=== PATIENT | female | born 1995 | race Caucasian/White ===

== ENCOUNTER 2018-03-14 11:50 | Outpatient (REF) | payer MEDICAID, SELFPAY ==
[2018-03-15 15:00] LABS: Chlamydia Result Negative; GC Result Negative; Specimen Description URINE
== END 2018-03-14 11:51 ==
LOC: LBN 11:50
PROVIDERS: Visit Provider Midwife
DX: O26.892 Other specified pregnancy related conditions, second trimester (principal); Z34.02 Encounter for supervision of normal first pregnancy, second trimester; N89.8 Other specified noninflammatory disorders of vagina; Z11.3 Encounter for screening for infections with a predominantly sexual mode of transmission
CPT/HCPCS: 87491; 87591; 87480; 87510; 87660

== ENCOUNTER 2018-04-16 16:18 | Outpatient (REF) | payer MEDICAID, SELFPAY ==
--- NOTE | 2018-04-16 10:35 | PAPFT_PTH ---
PATIENT: NAZANIN MORENO LOC: [facility] U#:[id number] AGE/SX: 22/F ROOM: RE04/16/[address]: Wesley Lora RN : 1995 BED: DIS: 04/16/2018 SPEC #: [id number] RECD: 04/16/18 17:57 STATUS: KAIN REKaryn #: [id number] GILBERTO: 04/16/18 10:[address]: Wesley Lora DEPT: [facility] Cytology RECD BY: Anna Brandt ENTERED: 04/16/18 17:58 SP TYPE: PAPFT BRENDEN DR: None Tissues: 1 - CX/ENDOCX FOR PAP SMEARS Procedures: PAP THIN PREP/UVM Screening Comments: [id number]
== END 2018-04-16 16:38 ==
LOC: LBN 16:18
PROVIDERS: Visit Provider Advanced Practice Midwife
DX: Z12.4 Encounter for screening for malignant neoplasm of cervix (principal)
CPT/HCPCS: 88142

== ENCOUNTER 2018-04-26 14:20 | Emergency (ER) | payer MEDICAID, SELFPAY ==
[2018-04-26 14:24] VITALS: BP 138/75; PULSE 108; RESP 18; TEMP 36.8; O2SAT 98
== END 2018-04-26 14:41 | disposition left before discharge ==
PROVIDERS: Emergency Provider Physician Assistant; PCP Nurse Practitioner Family
DX: Z53.21 Procedure and treatment not carried out due to patient leaving prior to being seen by health care provider (principal)

== ENCOUNTER 2018-04-30 07:17 | Outpatient (CLI) | payer MEDICAID, SELFPAY ==
[2018-04-30 07:46] LABS: Glucose,1 Hr (Glucola) 210 mg/dL (80-140)
[2018-04-30 07:57] LABS: HCT 32.6 % (36.0-46.0); HGB 10.9 g/dL (12.0-15.5); Mean Corp. HGB Concentration 33.4 g/dL (32.0-36.0); Mean Corpuscular Hemoglobin 31.4 pg (27.0-33.0); Mean Corpuscular Volume 93.9 fL (80-95); Mean Platelet Volume 10.6 fL (8.0-11.0); Platelet Count 236 x1000/uL (130-400); RBC 3.47 m/cumm (4.00-5.20); RBC Distribution Width 12.9 % (11.7-14.6); White Blood Cell Count 20.43 k/cumm (4.4-10.8)
[2018-04-30 08:01] LABS: TSH (W/Ref FT4) 2.13 uIU/mL (0.358-3.74)
[2018-05-03 23:19] LABS: Result Summary NEGATIVE; Specimen WB Whole Blood
== END 2018-04-30 07:37 ==
PROVIDERS: Advanced Practice Midwife; PCP Nurse Practitioner Family; Visit Provider Advanced Practice Midwife
DX: Z34.92 Encounter for supervision of normal pregnancy, unspecified, second trimester (principal); E03.9 Hypothyroidism, unspecified; Z13.228 Encounter for screening for other metabolic disorders; Z36.89 Encounter for other specified antenatal screening
CPT/HCPCS: 36415; 82950; 85027; 81220; 82947; 84443

== ENCOUNTER 2018-05-02 10:57 | Outpatient (REF) | payer MEDICAID, SELFPAY ==
[2018-05-02 13:51] LABS: TSH (W/Ref FT4) 2.24 uIU/mL (0.358-3.74)
== END 2018-05-02 11:17 ==
LOC: NCHCN 10:57
PROVIDERS: Visit Provider Family Medicine
DX: O99.283 Endocrine, nutritional and metabolic diseases complicating pregnancy, third trimester (principal); Z3A.30 30 weeks gestation of pregnancy
CPT/HCPCS: 84443

== ENCOUNTER 2018-05-10 01:04 | Outpatient (CLI) | payer MEDICAID, SELFPAY ==
--- NOTE | 2018-05-10 10:03 | DI.US_ITS ---
SYMPTOMS/DIAGNOSIS: , Z34.90, H/O RH OB ULTRASOUND: Many abnormalities cannot be diagnosed. A normal exam does not exclude a congenital anomaly. Radiology No. [id number] LMP: Exam Date: 05/10/18 [facility] wks days on EDC ([facility]) 07/16/18 Confirmed: HISTORY: ---- PREDICTED GESTATIONAL AGE NUMBER 30+3 weeks with a range of 29+3 weeks to 31+3 weeks. 1 Determined by___1STUS___LMP___HISTORY__X__ PLACENTA PRESENTATION Grade II Cephalic_X__ Anterior___Posterior___ Breech____ Right Left__X Transverse(head right___ Fundal_X__Low-lying___Previa___ Transverse(head left___ Varying BIOMETRY AMNIOTIC FLUID BPD: 75 mm 29+6 weeks Normal HC: 270 mm 29+3 weeks AC: 281 mm 32+1 weeks FL: 56 mm 29+4 weeks AMNIOTIC FLUID INDEX >26 WK CRL: mm weeks Cisterna Magna: mm CI: 0.87 RUQ: 4.24 LUQ: 5.36 Cerebellum: cm EFW: 1664 grams Percentile: 55th RLQ: 2.91 LLQ: 4.42 Total: 16.9 cm Composite AGE= 30+2 wks EDC by US: 07/17/18 BIOPHYSICAL PROFILE ANATOMY IDENTIFIED SCORE 0/2 Heart: 4-Chamber___Rate:BPM 147 LVOT: RVOT: Amniotic Fluid(>2cms)____ Stomach:__X Kidneys: Respirations (>30 secs) Bladder:___X Post. Fossa: Body Flex/Extension 3 vessel cord: Ventricles: cord insertion: Lips:____ Extremity Flex/Extension spinal morphology: Nose: Total Score= Palate: NS=not seen COMMENTS: Comparison is made with January,. The fetus is in cephalic position. Placenta is left sided. There is no evidence of previa. The biometric measurements correspond to 30 weeks 2 days. Estimated weight is 1664 g. The amniotic fluid index is 16.9. IMPRESSION: size and weight are within the normal range.
== END 2018-05-10 01:24 ==
PROVIDERS: PCP Nurse Practitioner Family; Visit Provider Advanced Practice Midwife
DX: Z34.93 Encounter for supervision of normal pregnancy, unspecified, third trimester (principal)
CPT/HCPCS: 76816

== ENCOUNTER 2018-05-27 12:35 | Outpatient (CLI) | payer MEDICAID, SELFPAY ==
[2018-05-27 15:37] LABS: Bilirubin Negative (Negative); Blood Negative (Negative); Clarity Clear; Glucose Negative (Negative); Ketones Negative (Negative); Leukocyte Esterase Negative (Negative); Nitrite Negative (Negative); Urobilinogen 0.2 EU/dL (Up TO 0.2)
== END 2018-05-27 12:55 ==
PROVIDERS: Visit Provider Advanced Practice Midwife
DX: O36.8130 Decreased fetal movements, third trimester, not applicable or unspecified (principal); Z3A.33 33 weeks gestation of pregnancy
CPT/HCPCS: 59025; 81003

== ENCOUNTER 2018-05-28 07:23 | Outpatient (CLI) | payer MEDICAID, SELFPAY ==
[2018-05-28 07:56] LABS: Glucose,1 Hr (Glucola) 158 mg/dL (80-140)
== END 2018-05-28 07:43 ==
PROVIDERS: PCP Nurse Practitioner Family; Visit Provider Advanced Practice Midwife
DX: Z34.93 Encounter for supervision of normal pregnancy, unspecified, third trimester (principal)
CPT/HCPCS: 36415; 82950

== ENCOUNTER 2018-06-07 01:10 | Outpatient (CLI) | payer MEDICAID, SELFPAY ==
[2018-06-07 08:54] LABS: Glucose 1 Hour 185 mg/dL
[2018-06-07 10:55] LABS: Glucose 3 Hour 84 mg/dL
== END 2018-06-07 01:30 ==
PROVIDERS: PCP Nurse Practitioner Family; Visit Provider Advanced Practice Midwife
DX: Z34.93 Encounter for supervision of normal pregnancy, unspecified, third trimester (principal); R73.09 Other abnormal glucose
CPT/HCPCS: 36410; 82951

== ENCOUNTER 2018-06-11 00:19 | Outpatient (CLI) | payer MEDICAID, SELFPAY ==
--- NOTE | 2018-06-11 10:02 | DI.US_ITS ---
SYMPTOM/DIAGNOSIS: H/O RENAL DISEASE Z87.448 OBSTETRICAL ULTRASOUND: There is a single living intrauterine gestation, estimated sonographic age is 34 weeks 6 days The fetus is in the cephalic presentation. heart rate is 153 beats/minute. A anatomic evaluation was not performed during this examination. Estimated weight is 2462 grams which is at 34th percentile The placenta is anterior without evidence of previa The amniotic fluid index is 17.9 cm, visually the amniotic fluid appears within normal limits. IMPRESSION: Single living intrauterine gestation. Estimated sonographic age is 34 weeks 6 days. Many abnormalities cannot be diagnosed. A normal exam does not exclude a congenital anomaly. Radiology No. [id number] LMP: Exam Date: [facility] wk on [facility] ([facility]) 07/16/18 Confirmed: HISTORY: GROWTH/JENNIFER ---- PREDICTED GESTATIONAL AGE NUMBER 35 - weeks with a range of 34 week to 36 weeks. 1 Determined by___1STUS___LMP___HISTORY Info. pertaining to fetus # PLACENTA PRESENTATION Grade II Cephalic__XX_ Anterior_XX__Posterior___ Breech____ Right Left__XX Transverse(head right___ Fundal___Low-lying___Previa___ Transverse(head left___ Varying BIOMETRY AMNIOTIC FLUID BPD: 88 mm 35 +4 weeks Normal HC: 315 mm 35 +2 weeks AC: 305 mm 34 +3 weeks FL: 66 mm 34 +1 weeks AMNIOTIC FLUID INDEX >26 WK CRL: - mm - weeks Cisterna Magna: - mm CI: 84 RUQ:__2.2____LUQ___3.7 Cerebellum: - cm EFW: 2462 grams 34 Percentile RLQ:__7.1____LLQ____5.1___ Total:___17.9_cms Composite AGE= 34 +6 wks EDC by US___07/17/2018 BIOPHYSICAL PROFILE ANATOMY IDENTIFIED SCORE 0/2 Heart: 4-Chamber___Rate:BPM_153 BPM___ LVOT: RVOT: Amniotic Fluid(>2cms)____ Stomach: Kidneys: Respirations (>30 secs) Bladder: Post. Fossa: Body Flex/Extension 3 vessel cord: Ventricles: cord insertion: Lips:____ Extremity Flex/Extension spinal morphology: Nose: Total Score= Palate: NS=not seen
== END 2018-06-11 00:39 ==
PROVIDERS: PCP Nurse Practitioner Family; Visit Provider Advanced Practice Midwife
DX: Z34.93 Encounter for supervision of normal pregnancy, unspecified, third trimester (principal); Z87.448 Personal history of other diseases of urinary system
CPT/HCPCS: 76816

== ENCOUNTER 2018-06-18 12:44 | Outpatient (REF) | payer MEDICAID, SELFPAY | END 2018-06-18 13:04 | LOC: LBN 12:44 | PROVIDERS: PCP Nurse Practitioner Family; Visit Provider Advanced Practice Midwife | DX: Z34.93 Encounter for supervision of normal pregnancy, unspecified, third trimester (principal); Z36.85 Encounter for antenatal screening for Streptococcus B; Z22.322 Carrier or suspected carrier of Methicillin resistant Staphylococcus aureus | CPT/HCPCS: 87081 ==

== ENCOUNTER 2018-07-02 00:50 | Outpatient (CLI) | payer MEDICAID, SELFPAY ==
--- NOTE | 2018-07-02 15:27 | DI.US_ITS ---
SYMPTOM/DIAGNOSIS: GESTATIONAL DM, Z34.90 OBSTETRICAL ULTRASOUND: There is a single living intrauterine gestation in the cephalic presentation. Estimated gestational age is 37 weeks 5 days. The placenta is anterior. heart rate is 153 BPM. Estimated weight is 3317 grams which is the 58% percentile. Amniotic fluid index is 18.7 cm. IMPRESSION: Single living intrauterine gestation. Estimated sonographic age is 37 weeks 5 days. Many abnormalities cannot be diagnosed. A normal exam does not exclude a congenital anomaly. Radiology No. [id number] LMP: Exam Date:07/02/18 [facility] wks days on EDC ([facility]) 07/16/18 Confirmed: HISTORY: GROWTH; GEST DIABETES ---- PREDICTED GESTATIONAL AGE NUMBER 38- weeks with a range of 37- week to 39- weeks. 1 Determined by_XX__1STUS___LMP___HISTORY Info. pertaining to fetus # PLACENTA PRESENTATION Grade II-III Cephalic__X_ Anterior_XX__Posterior___ Breech____ Right Left Transverse(head right___ Fundal___Low-lying___Previa___ Transverse(head left___ Varying BIOMETRY AMNIOTIC FLUID BPD: 93 mm 37 +6 weeks Normal/polyhydramnios HC: 329 mm 37 +2 weeks AC: 340 mm 37 +6 weeks FL: 74 mm 37 +6 weeks AMNIOTIC FLUID INDEX >26 WK CRL: - mm - weeks Cisterna Magna: - mm CI: 86 RUQ:_2.0 LUQ___1.6 Cerebellum: - cm EFW: 3317 grams 58% Percentile RLQ:_5.7 LLQ__9.5____ Total:__18.7_cms Composite AGE= 37 +5 wks EDC by US__07/18/18 BIOPHYSICAL PROFILE ANATOMY IDENTIFIED SCORE 0/2 Heart: 4-Chamber___Rate:BPM__153 BPM___ LVOT: RVOT: Amniotic Fluid(>2cms)____ Stomach: Kidneys: Respirations (>30 secs) Bladder: Post. Fossa: Body Flex/Extension 3 vessel cord: Ventricles: cord insertion: Lips:____ Extremity Flex/Extension spinal morphology: Nose: Total Score= Palate: NS=not seen
== END 2018-07-02 01:10 ==
PROVIDERS: PCP Nurse Practitioner Family; Visit Provider Advanced Practice Midwife
DX: Z34.93 Encounter for supervision of normal pregnancy, unspecified, third trimester (principal); O24.419 Gestational diabetes mellitus in pregnancy, unspecified control
CPT/HCPCS: 76816

== ENCOUNTER 2018-07-02 12:56 | Outpatient (CLI) | payer MEDICAID, SELFPAY | END 2018-07-02 13:16 | PROVIDERS: PCP Nurse Practitioner Family; Visit Provider Nurse Practitioner | DX: O24.419 Gestational diabetes mellitus in pregnancy, unspecified control (principal); Z3A.38 38 weeks gestation of pregnancy | CPT/HCPCS: 59025 ==

== ENCOUNTER 2018-07-05 09:02 | Outpatient (CLI) | payer MEDICAID, SELFPAY | END 2018-07-05 09:22 | PROVIDERS: PCP Nurse Practitioner Family; Visit Provider Advanced Practice Midwife | DX: O24.419 Gestational diabetes mellitus in pregnancy, unspecified control (principal); O99.333 Smoking (tobacco) complicating pregnancy, third trimester; Z3A.39 39 weeks gestation of pregnancy | CPT/HCPCS: 59025 ==

== ENCOUNTER 2018-07-09 08:38 | Outpatient (CLI) | payer MEDICAID, SELFPAY | END 2018-07-09 08:58 | PROVIDERS: PCP Nurse Practitioner Family; Visit Provider Advanced Practice Midwife | DX: O24.410 Gestational diabetes mellitus in pregnancy, diet controlled (principal); Z3A.39 39 weeks gestation of pregnancy | CPT/HCPCS: 59025 ==

== ENCOUNTER 2018-07-12 09:20 | Outpatient (CLI) | payer MEDICAID, SELFPAY | END 2018-07-12 09:40 | PROVIDERS: PCP Nurse Practitioner Family; Visit Provider Advanced Practice Midwife | DX: O24.419 Gestational diabetes mellitus in pregnancy, unspecified control (principal); Z3A.39 39 weeks gestation of pregnancy | CPT/HCPCS: 59025 ==

== ENCOUNTER 2018-07-17 11:15 | Inpatient (IN) | payer MEDICAID, SELFPAY ==
[2018-07-17 16:00] LABS: HCT 37.2 % (36.0-46.0); HGB 12.4 g/dL (12.0-15.5); Mean Corp. HGB Concentration 33.3 g/dL (32.0-36.0); Mean Corpuscular Hemoglobin 30.8 pg (27.0-33.0); Mean Corpuscular Volume 92.5 fL (80-95); Mean Platelet Volume 10.7 fL (8.0-11.0); Platelet Count 283 x1000/uL (130-400); RBC 4.02 m/cumm (4.00-5.20); White Blood Cell Count 18.71 k/cumm (4.4-10.8)
[2018-07-17] MEDS: Nicotine 2 MG GUM CH ×2 (17:12→19:27)
[2018-07-17] MEDS: Normal Saline Flush 10 ML SYR (20:50)
[2018-07-18] MEDS: Zolpidem 10 MG TAB PO (02:57)
[2018-07-18] MEDS: Normal Saline 1,000 ML 120 ML IV ×2 (10:00→17:02)
[2018-07-18] MEDS: Ondansetron 4 MG/2 ML VIAL IVP (17:34)
[2018-07-18] MEDS: Normal Saline Flush 10 ML SYR IVP (17:35)
[2018-07-18] MEDS: AZITHROMYCIN 500 MG in Normal Saline 250 ML 250 MG IVPB (20:16)
[2018-07-18] MEDS: Lactated Ringers 1,000 ML 200 ML IV (20:34)
--- NOTE | 2018-07-18 21:25 | PLAC_PTH ---
PATIENT: NAZANIN MORENO LOC: OBS U#:[id number] AGE/SX: 22/F ROOM: OBS.304 RE07/17/[address]: Cadence Waddell CNM : 1995 BED: A DIS: 07/20/2018 SPEC #: [id number] RECD: 07/19/18 12:43 STATUS: KAIN REQ #: [id number] GILBERTO: 07/18/18 21:[address]: Cadence Waddell DEPT: Surgical Specimen RECD BY: Anna Brandt ENTERED: 07/19/18 12:46 SP TYPE: PLAC OTHR DR: Carito Galeas Tissues: 1 - PLACENTA (3RD TRIMESTER) 2 - SOFT TISSUE-CYST(NOT LIPOMA) Procedures: GROSS AND MICRO LEVEL 4 GROSS AND MICRO LEVEL 5 Comments: [id number]
--- NOTE | 2018-07-18 22:27 | W.PM.OP ---
Date of service: 07/18/18 Time of Service: 22:28 Operative Note DATE OF PROCEDURE: 07/18/18 PRE-OP DIAGNOSIS: Diet-controlled gestational diabetes, risk dilatation, failed induction POST-OP DIAGNOSIS: same PROCEDURE: Low transverse delivery. 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 Patient had the Benitez bulb in place for proximal 24 hours with a maximum cervical dilatation of 2 cm after misoprostol followed by oxytocin maximum dose of oxygen Pitocin was 3 milliunits/min. Adequate contractions were documented by [facility] for over 5 hours with no cervical change from 2 cm 50% effaced -2-3 station. Findings: A viable female infant in the ER OT position with meconium staining of the amniotic fluid. weight: 6 pounds 15 ounces. 1 at 1 minute 9 9 at 5 minutes normal placenta uterus and right adnexa the left fallopian tube had a 1 cm fibroma and cyst of morganii along the mid isthmic portion. Those 2 structures were dissected away from the fallopian tube and sent to pathology along with the placenta. PH arterial umbilical cord gas 7.2 for venous cord gas pH 7.30 Procedure Description: Patient was taken to the operating room which is placed in the sitting position and spinal anesthesia was administered without difficulty. She was then placed in the dorsal supine position with a leftward tilt Benitez catheter was inserted to gravity drainage the vagina was prepped with Betadine and the abdomen was prepped and draped in the usual sterile fashion. Prior to the OR she had begun azithromycin 500 mg IV and at the time of her presentation to the OR she received 2 g of Ancef IV. SCDs were put in place a timeout was performed. Prior to the vaginal prep all instruments removed from the vagina. Once an adequate level of anesthesia was obtained a scalpel was used to incise the skin and Pfannenstiel incision the underlying subcutaneous tissue was dissected using Bovie electrocautery to the level of the rectus fascia. The rectus fascia was then nicked in the midline with a scalpel and the incision was extended laterally using curved Black scissors. 2 livier clamps were placed on the inferior aspect of fascial incision and the rectus fascia was dissected off of the underlying rectus muscles using blunt technique and Bovie electrocautery similar technique was carried out on the superior aspect of the fascial incision. Rectus muscles were then in the midline and the peritoneum was entered bluntly and the peritoneal incision was extended using blunt traction. A bladder blade was then placed into the abdominal incision to retract the bladder away from the operative field. The peritoneum of the lower uterine segment was tented up and incised a bluntly dissected away from the uterus the bladder blade was then reinserted to retract the bladder away from the operative field. A scalpel was used to incise the lower uterine segment upon entry into the uterine cavity the uterine incision was extended bluntly in a lateral fashion. A single gloved hand was placed into the uterus and the head was delivered through the uterine incision atraumatically followed by shoulders trunk and lower extremities. After the fetus was passed off the operative field to the waiting pediatric team the placenta was manually extracted and the uterus was exteriorized cleared of all clots and debris's and the uterine incision closed with a running imbricated suture of 0 Vicryl followed by a second suture of 0 Vicryl to achieve excellent hemostasis. The cord gases umbilical cord blood were then collected and sent to the laboratory. It was at this point that the small fibroma in cyst of morganii along the left fallopian tube was noted and dissected away from the fallopian tube with Metzenbaum scissors. The excision site was then cauterized and sutured with an interrupted sutures of 2-0 Vicryl for excellent hemostasis. The uterus was then returned to the abdomen after final inspection of the uterine incision and the left fallopian tube site. Paracolic gutters were cleared of all clots and debris in the peritoneum was reapproximated with a running suture of 2-0 Vicryl the fascia was reapproximated with a 0 Vicryl extending from the left to the right fascial incision. Subtenons tissue was irrigated with sterile normal saline and space was closed with a running suture of 2-0 Vicryl. Skin was reapproximated with 4-0 Vicryl in subcuticular fashion. And the skin was sealed with skin glue. Uterus is massaged for any remaining clots and agrees and the patient was transported to [facility] where she was then taken to recovery on the center. All sponge lap and needle counts correct x2
[2018-07-19] MEDS: Lactated Ringers 1,000 ML 200 ML IV (00:49)
[2018-07-19] MEDS: Acetaminophen 325 MG TAB 650 MG PO ×2 (00:49→11:46)
[2018-07-19] MEDS: Ketorolac 30 MG/ML VIAL IVP (04:13)
[2018-07-19 07:10] LABS: HGB 10.3 g/dL (12.0-15.5); Mean Corp. HGB Concentration 33.2 g/dL (32.0-36.0); Mean Corpuscular Hemoglobin 31.6 pg (27.0-33.0); Mean Corpuscular Volume 95.1 fL (80-95); Mean Platelet Volume 10.2 fL (8.0-11.0); Platelet Count 191 x1000/uL (130-400); RBC 3.26 m/cumm (4.00-5.20); RBC Distribution Width 13.3 % (11.7-14.6)
[2018-07-19 07:13] LABS: White Blood Cell Count 26.14 k/cumm (4.4-10.8)
[2018-07-19] MEDS: Ibuprofen 600 MG TAB PO (11:47)
[2018-07-19] MEDS: oxyCODONE 5 mg/Acetaminophen 325 mg TAB PO ×2 (16:38→20:26)
[2018-07-19] MEDS: Calcium Carbonate *TUMS* 500 MG CHEW PO (20:50)
[2018-07-19] MEDS: Docusate Sodium 100 MG CAP PO (20:56)
[2018-07-20] MEDS: Ibuprofen 600 MG TAB PO ×3 (00:10→15:32)
[2018-07-20] MEDS: oxyCODONE 5 mg/Acetaminophen 325 mg TAB PO ×3 (00:35→15:32)
[2018-07-20] MEDS: Docusate Sodium 100 MG CAP PO (08:28)
[2018-07-20 09:16] LABS: HCT 31.3 % (36.0-46.0); HGB 10.2 g/dL (12.0-15.5); Mean Corp. HGB Concentration 32.6 g/dL (32.0-36.0); Mean Corpuscular Hemoglobin 31.2 pg (27.0-33.0); Mean Corpuscular Volume 95.7 fL (80-95); Mean Platelet Volume 10.3 fL (8.0-11.0); Platelet Count 201 x1000/uL (130-400); RBC 3.27 m/cumm (4.00-5.20); RBC Distribution Width 13.2 % (11.7-14.6); White Blood Cell Count 21.33 k/cumm (4.4-10.8)
--- NOTE | 2018-07-20 10:08 | W.PM.DS.N ---
Date of service: 07/20/18 Time of Service: 10:19 DS: Diagnosis Discharge Diagnosis (1) Gestational diabetes: Status: Acute (2) History of delivery: Status: Chronic (3) Psoriatic arthritis: Status: None (4) Failed induction of labor: Status: Acute (5) Arrest of dilation, delivered, current hospitalization: Status: Acute Discharge Plan Disposition Patient Disposition: HOME Condition: Fair Discharge Details Reason For Visit: GDM, induction of labor. Admit Date/Time: 07/17/18 11:15 Admit Provider: Leatha Waddell Attending Provider: Leatha Waddell Primary Care Provider: Carito Galeas [facility] Hospital Course: 3 para 0 female admitted for 40.2 weeks EGA induction of labor for poorly controlled gestational diabetes. Received cervical ripening which resulted in spontaneous rupture membranes but no appreciable cervical change despite oxytocin augmentation of labor she never progressed past 2 cm dilatation. Primary low transverse delivery was performed viable female named serenity weighing 6 pounds 15 ounces Apgars 1 at 1 minute and 8 at 5 minutes. Postop day 2 successfully breast-feeding pain controlled with NSAIDs and as needed Percocet Home Meds and New Rx's Prescriptions: No Action albuterol sulfate 200 mcg capsule, w/inhalation device IH RF: 0 ferrous sulfate [Iron (ferrous sulfate)] 325 mg (65 mg iron) tablet 325 mg PO DAILY Qty: 100 RF: 0 ranitidine HCl [Zantac] 150 mg tablet 150 mg PO DAILY Qty: 30 RF: 1 nystatin 100,000 unit/gram ointment 1 applic TP TID Qty: 30 RF: 0 blood sugar diagnostic [FreeStyle Lite Strips] strip .ROUTE .MEDSUPPLY Qty: 50 RF: 7 triamcinolone acetonide 0.5 % cream 1 applic TP BID Qty: 15 RF: 1 Plus (calcium carb) 1 EACH tablet 1 tab-cap PO DAILY 30 Days Qty: 30 RF: 6 aspirin 81 MG tablet,chewable 81 mg PO DAILY Qty: 1 RF: 0 blood-glucose meter [FreeStyle Lite Meter] kit .ROUTE .MEDSUPPLY Qty: 1 RF: 0 lancets [Lite Touch Lancets] 30 gauge misc .ROUTE .MEDSUPPLY Qty: 50 RF: 6 Discharge Instructions Additional Instructions: Watch your baby for early feeding cues, to know when your baby is hungry (mouth movements, turns toward finger if cheek gently stroked, sucking on finger or fist). Crying is a late sign of hunger. Expect that your baby will want to eat about every 1.5-3 hours (8-12 feedings per day). If your baby isn't asking to feed, wake your baby for feedings, at least every 3 hours. Once latched, some newborns need encouragement to feed actively throughout a feeding. Breast massage, combined with deep breast compressions, are usually effective in keeping babies awake, and drinking well. Signs that your baby is well include sustained bursts of sucking (10 or more strong sucks in a row, before short pauses, in a full term infant), deep and rhythmic jaw movements, frequent swallowing (once milk has come in ), and contentment between feedings. Also, once your milk is in, expect at least 6-8 wet diapers, and 4-6 seedy, loose, yellow bms (poops) everyday. Your baby should return to weight by 10-14 days old. Contact your baby's medical provider if your baby isn't reaching the above goals, or with any concerns about your baby. Also seek help for any of the following: difficulty latching/feeding your baby fussiness or sleepy behaviors at the breast painful if thinking about stopping if you haven't experienced increased breast fullness or size by 5 days after if you have any nipple breakdown/trauma any questions or concerns [facility] - Consultation [facility] - The [facility] (20/02 availbility) Or Toll Free Caring for yourself after a Section Office: Center: Please limit your activity REST, REST, REST. Try not to do more than you were doing in the hospital for the first week, then gradually increase your activity. Limit stair climbing for your first week at home You may take short rides in the car anytime, but do not drive yourself until 2 weeks after your surgery. Begin by taking the car in the driveway or a parking lot. If you cannot sit in the car and turn your body comfortably, it is too soon to drive. Do not drive while taking any narcotic pain medicines. No lifting greater than 10 to 15 pounds for 6 weeks. Nothing in your vagina for 6 weeks - this means no tampons or intercourse. Douching is never recommended. You May Shower and wash your hair at any time. May take a bath once skin incision is healed, usually by 2 to 3 weeks. Do not scrub your incision until skin incision is healed, but it is okay for it to get wet, then pat dry. Return to work 6 weeks after your surgery or as discussed with your doctor. Expect Vaginal bleeding for 6 weeks after surgery. Some fatigue and mood changes. Baby blues are common in the first few weeks. Remember your body is using its energy to heal your surgical site and your sleep is interrupted by night time feedings. Be gentle with yourself and your partner. If the feelings of sadness continue or get worse, please call us. Call immediately if you have any thoughts of harming yourself or your baby. Drink lots of water You will need 8 to 10 glasses of water or juice every day to help prevent constipation and keep a good milk supply. Coffee, tea and soda are not good choices for keeping yourself well hydrated. For constipation, you may use over the counter products such as metamucil, Fibercon, Colace or Milk of Magnesia. Also eat a high fiber diet with lots of fruits and vegetables. Call the office For any signs of infection such as fever greater than 100.4 degrees Fahrenheit, redness or discharge from the incision or foul smelling vaginal discharge. For pain that is getting worse instead of better If you experience any new symptoms such as vomiting For bleeding that is getting heavier rather than gm mobile If you are not sure whether you need help and the office is closed, you can call the Center nurses for triage. Medications Resume any medications you were taking before delivery. You may use Ibuprofen (Advil, Motrin) 600 mg every 6 hours as needed for pain. If you buy this over the counter it is the same medicine as in a prescription. The over the counter medicine contains 200 mg, so you may take 3 tablets at a time. Instead of Ibuprofen, you may use Naproxen Sodium (Naprosyn, Aleve). You may take 500 mg every 8 to 12 hours as needed for pain. The over the counter medicine is the same as the prescription. The over the counter type contains 220 mg, so you may take 2 tablets at a time. Do not take both Ibuprofen AND Naproxen as they are very similar. Take one OR the other. You may use Acetaminophen (Tylenol) regular strength (325 mg) - take 1 or 2 tablets every 4 hours. You may use this IN ADDITION to Motrin or Naproxen because it works by a different mechanism. She will be given a prescription for Percocet 5/325 mg take 1 tablet every 6 hours as needed for severe pain along with the Motrin prescription. Follow up appointments We would like to see you one week after surgery to check your incision and remove skin esa if you have them. The Center nurses will schedule this appointment for you before you leave the hospital. We will see you again 6 weeks after your surgery for a complete exam. You may schedule that appointment by calling the office. Please call us with any other questions or concerns. Activity:: Activity as Tolerated Equipment/Supplies:: No Equipment Needed Diet:: As Tolerated Discharge Orders Discharge Orders: Discharge Order (Routine); Ordered 07/20/18 Ordered By: Toya Waters DS: Data Vitals/I&O Vitals and I&O: Vital Signs Pain Level 5 07/20/18 08:28 Intake & Output 07/19/18 07/19/18 07/20/18 11:59 23:59 11:59 Intake Total 2300 / 2300 Balance 2300 / 2300 Weight 214 lb Intake: IV 2300 / 2300 Labs on day of discharge: Labs from last 24 hours 07/20/18 09:02 WBC 21.33 H RBC 3.27 L Hgb 10.2 L Hct 31.3 L MCV 95.7 H MCH 31.2 MCHC 32.6 RDW 13.2 Plt Count 201 MPV 10.3 PFSH Medical History Gestational diabetes (Acute) Severe sepsis due to methicillin resistant Staphylococcus aureus (MRSA) with acute organ dysfunction Psoriatic arthritis Surgical History History of delivery (Chronic) Social History adopted: Yes foster care: Yes (then adopted) household members: friend(s) marital status: S-EF: Hemanth number of children: 01 current occupational status: employed 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 Date GA/Weeks # Outcome Route Wgt Sex Labor Lgth Anesthesia Location Prov Complic 07/18/18 40 No Successful 6 lb 15 oz 24 hrs aoc/CNM L [place] Delivery Date: 07/18/18 On 07/20/18 @ 10:18 Toya Waters Unsuccessful IOL for gestational diabetes. No cervical change from 2 cm despite oxytocin and adequate contractions. F. Serenity. 2 layer closure
--- NOTE | 2018-07-20 10:12 | DSE_ITS ---
Date of service: 07/20/18 Time of Service: 10:19 DS: Diagnosis Discharge Diagnosis (1) Gestational diabetes: Status: Acute (2) History of delivery: Status: Chronic (3) Psoriatic arthritis: Status: None (4) Failed induction of labor: Status: Acute (5) Arrest of dilation, delivered, current hospitalization: Status: Acute Discharge Plan Disposition Patient Disposition: HOME Condition: Fair Discharge Details Reason For Visit: GDM, induction of labor. Admit Date/Time: 07/17/18 11:15 Admit Provider: Leatha Waddell Attending Provider: Leatha Waddell Primary Care Provider: Carito Galeas [facility] Course Hospital Course: 3 para 0 female admitted for 40.2 weeks EGA induction of labor for poorly controlled gestational diabetes. Received cervical ripening which resulted in spontaneous rupture membranes but no appreciable cervical change despite oxytocin augmentation of labor she never progressed past 2 cm dilatation. Primary low transverse delivery was performed viable female named serenity weighing 6 pounds 15 ounces Apgars 1 at 1 minute and 8 at 5 minutes. Postop day 2 successfully breast-feeding pain controlled with NSAIDs and as needed Percocet Home Meds and New Rx's Prescriptions: No Action albuterol sulfate 200 mcg capsule, w/inhalation device IH RF: 0 ferrous sulfate [Iron (ferrous sulfate)] 325 mg (65 mg iron) tablet 325 mg PO DAILY Qty: 100 RF: 0 ranitidine HCl [Zantac] 150 mg tablet 150 mg PO DAILY Qty: 30 RF: 1 nystatin 100,000 unit/gram ointment 1 applic TP TID Qty: 30 RF: 0 blood sugar diagnostic [FreeStyle Lite Strips] strip .ROUTE .MEDSUPPLY Qty: 50 RF: 7 triamcinolone acetonide 0.5 % cream 1 applic TP BID Qty: 15 RF: 1 Plus (calcium carb) 1 EACH tablet 1 tab-cap PO DAILY 30 Days Qty: 30 RF: 6 aspirin 81 MG tablet,chewable 81 mg PO DAILY Qty: 1 RF: 0 blood-glucose meter [FreeStyle Lite Meter] kit .ROUTE .MEDSUPPLY Qty: 1 RF: 0 lancets [Lite Touch Lancets] 30 gauge misc .ROUTE .MEDSUPPLY Qty: 50 RF: 6 Discharge Instructions Additional Instructions: Watch your baby for early feeding cues, to know when your baby is hungry (mouth movements, turns toward finger if cheek gently stroked, sucking on finger or fist). Crying is a late sign of hunger. Expect that your baby will want to eat about every 1.5-3 hours (8-12 feedings per day). If your baby isn't asking to feed, wake your baby for feedings, at least every 3 hours. Once latched, some newborns need encouragement to feed actively throughout a feeding. Breast massage, combined with deep breast compressions, are usually effective in keeping babies awake, and drinking well. Signs that your baby is well include sustained bursts of sucking (10 or more strong sucks in a row, before short pauses, in a full term infant), deep and rhythmic jaw movements, frequent swallowing (once milk has come in ), and contentment between feedings. Also, once your milk is in, expect at least 6-8 wet diapers, and 4-6 seedy, loose, yellow bms (poops) everyday. Your baby should return to weight by 10-14 days old. Contact your baby's medical provider if your baby isn't reaching the above goals, or with any concerns about your baby. Also seek help for any of the following: * difficulty latching/feeding your baby * fussiness or sleepy behaviors at the breast * painful * if thinking about stopping * if you haven't experienced increased breast fullness or size by 5 days after * if you have any nipple breakdown/trauma * any questions or concerns [facility] - Consultation [facility] - [facility] (20/02 availbility) Or T[facility] Caring for yourself after a Section Office: Center: Please limit your activity * REST, REST, REST. Try not to do more than you were doing in the hospital for the first week, then gradually increase your activity. * Limit stair climbing for your first week at home * You may take short rides in the car anytime, but do not drive yourself until 2 weeks after your surgery. Begin by taking the car in the driveway or a parking lot. If you cannot sit in the car and turn your body comfortably, it is too soon to drive. Do not drive while taking any narcotic pain medicines. * No lifting greater than 10 to 15 pounds for 6 weeks. * Nothing in your vagina for 6 weeks - this means no tampons or intercourse. Douching is never recommended. You May * Shower and wash your hair at any time. May take a bath once skin incision is healed, usually by 2 to 3 weeks. * Do not scrub your incision until skin incision is healed, but it is okay for it to get wet, then pat dry. * Return to work 6 weeks after your surgery or as discussed with your doctor. Expect * Vaginal bleeding for 6 weeks after surgery. * Some fatigue and mood changes. Baby blues are common in the first few weeks. Remember your body is using its energy to heal your surgical site and your sleep is interrupted by night time feedings. Be gentle with yourself and your partner. If the feelings of sadness continue or get worse, please call us. Call immediately if you have any thoughts of harming yourself or your baby. Drink lots of water * You will need 8 to 10 glasses of water or juice every day to help prevent constipation and keep a good milk supply. Coffee, tea and soda are not good choices for keeping yourself well hydrated. * For constipation, you may use over the counter products such as metamucil, Fibercon, Colace or Milk of Magnesia. Also eat a high fiber diet with lots of fruits and vegetables. Call the office * For any signs of infection such as fever greater than 100.4 degrees Fahrenheit, redness or discharge from the incision or foul smelling vaginal discharge. 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 Medications * Resume any medications you were taking before delivery. * You may use Ibuprofen (Advil, Motrin) 600 mg every 6 hours as needed for pain. If you buy this over the counter it is the same medicine as in a prescription. The over the counter medicine contains 200 mg, so you may take 3 tablets at a time. * Instead of Ibuprofen, you may use Naproxen Sodium (Naprosyn, Aleve). You may take 500 mg every 8 to 12 hours as needed for pain. The over the counter medicine is the same as the prescription. The over the counter type contains 220 mg, so you may take 2 tablets at a time. * Do not take both Ibuprofen AND Naproxen as they are very similar. Take one OR the other. * You may use Acetaminophen (Tylenol) regular strength (325 mg) - take 1 or 2 tablets every 4 hours. You may use this IN ADDITION to Motrin or Naproxen because it works by a different mechanism. * She will be given a prescription for Percocet 5/325 mg take 1 tablet every 6 hours as needed for severe pain along with the Motrin prescription. Follow up appointments * We would like to see you one week after surgery to check your incision and remove skin esa if you have them. The Center nurses will schedule this appointment for you before you leave the hospital. We will see you again 6 weeks after your surgery for a complete exam. You may schedule that appointment by calling the office. Please call us with any other questions or concerns. Activity:: Activity as Tolerated Equipment/Supplies:: No Equipment Needed Diet:: As Tolerated Discharge Orders Discharge Orders: Discharge Order (Routine); Ordered 07/20/18 Ordered By: Toya Waters DS: Data Vitals/I&O Vitals and I&O: Vital Signs Pain Level 5 07/20/18 08:28 Intake & Output 07/19/18 07/19/18 07/20/18 11:59 23:59 11:59 Intake Total 2300 / 2300 Balance 2300 / 2300 Weight 214 lb Intake: IV 2300 / 2300 Labs on day of discharge: Labs from last 24 hours 07/20/18 09:02 WBC 21.33 H RBC 3.27 L Hgb 10.2 L Hct 31.3 L MCV 95.7 H MCH 31.2 MCHC 32.6 RDW 13.2 Plt Count 201 MPV 10.3 PFSH Medical History Gestational diabetes (Acute) Severe sepsis due to methicillin resistant Staphylococcus aureus (MRSA) with acute organ dysfunction Psoriatic arthritis Surgical History History of delivery (Chronic) Social History adopted: Yes foster care: Yes (then adopted) household members: friend(s) marital status: S-EF: Hemanth number of children: 01 current occupational status: employed 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 Date GA/Weeks # Outcome Route Wgt Sex Labor Lgth Anesthesia Location Prov Complic 07/18/18 40 No Successful 6 lb 15 oz 24 hrs aoc/CNM Eduar Garduno Delivery Date: 07/18/18 On 07/20/18 @ 10:18 Toya Waters Unsuccessful IOL for gestational diabetes. No cervical change from 2 cm despite oxytocin and adequate contractions. F. Serenity. 2 layer closure
== END 2018-07-20 16:40 | disposition home or self-care (01) | DRG 783 ==
PROVIDERS: Obstetrics & Gynecology Gynecology; Admitting Provider Advanced Practice Midwife; PCP Nurse Practitioner Family; Visit Provider Advanced Practice Midwife
PROC: 10D00Z1 Extraction of Products of Conception, Low, Open Approach (ICD-10-PCS; CPT 59514; principal; 2018-07-18 20:30)
DX: O24.420 Gestational diabetes mellitus in childbirth, diet controlled (principal); O41.1030 Infection of amniotic sac and membranes, unspecified, third trimester, not applicable or unspecified; Z3A.40 40 weeks gestation of pregnancy; Z37.0 Single live birth; O48.0 Post-term pregnancy; Q50.5 Embryonic cyst of broad ligament; D21.5 Benign neoplasm of connective and other soft tissue of pelvis; O77.0 Labor and delivery complicated by meconium in amniotic fluid; O99.824 Streptococcus B carrier state complicating childbirth; O61.0 Failed medical induction of labor; O63.0 Prolonged first stage (of labor); O62.1 Secondary uterine inertia; O99.334 Smoking (tobacco) complicating childbirth; F17.210 Nicotine dependence, cigarettes, uncomplicated; O99.344 Other mental disorders complicating childbirth; F31.9 Bipolar disorder, unspecified; O99.72 Diseases of the skin and subcutaneous tissue complicating childbirth; L40.50 Arthropathic psoriasis, unspecified; Z60.8 Other problems related to social environment; Z59.1 Inadequate housing; Z86.14 Personal history of Methicillin resistant Staphylococcus aureus infection
CPT/HCPCS: 59514; 49203; 36415; 85027; 86850; 86900; 86901; 88305; 88304; 88307; J0456; J0690; J1885; J2405; J2540; J2590; J3490

== ENCOUNTER 2018-08-03 01:49 | Outpatient (CLI) | payer MEDICAID, SELFPAY ==
--- NOTE | 2018-08-03 09:24 | DI.CT_ITS ---
SYMPTOM/DIAGNOSIS: S/P C SECTION, DRAINAGE FROM INCISION, ? ABSCESS,T81.31XA ABDOMEN AND PELVIC CT: CT scan of the abdomen and pelvis was performed following the uneventful administration of intravenous and oral contrast material. There are no priors for comparison. No acute findings are seen in the lung bases. The liver is normal in size. No hepatic mass is seen. The portal and superior mesenteric veins are patent. The gallbladder is negative. No biliary ductal dilatation is seen. The pancreas and peripancreatic soft tissues are unremarkable as are the spleen and adrenal glands. The kidneys show normal and symmetric enhancement. No evidence of a solid renal mass or obstruction. The urinary bladder is intact. The uterus is enlarged and heterogeneous with an area of decreased attenuation in the anterior lower uterine segment, most consistent with a section. There is a trace amount of free fluid in the pelvis. No pneumoperitoneum or significant adenopathy is present. The bowel shows no evidence of obstruction or inflammation. There is a normal appendix present. There is a moderate amount of stool present. The abdominal aorta is of normal caliber. No significant abdominal or pelvic adenopathy or pneumoperitoneum is seen. There is soft tissue stranding in the lower anterior abdominal wall, most consistent with a incision. There is a small fluid collection seen interposed between the rectus abdominis muscles inferiorly measuring 1.2 cm. by 1.2 cm. (series 5, image 82). No other focal fluid collection is seen. No acute abnormality is seen in the bones. IMPRESSION: 1. Heterogeneous enlarged uterus most consistent with prior section and uterus. 2. Subcutaneous edema seen in the lower anterior abdominal wall consistent with the patient's section incision. 3. 1.2 by 1.2 cm. fluid collection interposed between the rectus abdominis muscles. This may represent a small hematoma, seroma. Abscess cannot be excluded.
[2018-08-03] MEDS: Omnipaque 350 MG/ML 100 ML BTL IJ (09:25)
== END 2018-08-03 02:09 ==
PROVIDERS: PCP Nurse Practitioner Family; Visit Provider Obstetrics & Gynecology Gynecology
DX: N85.2 Hypertrophy of uterus (principal); T81.89XA Other complications of procedures, not elsewhere classified, initial encounter; O90.2 Hematoma of obstetric wound; O90.0 Disruption of cesarean delivery wound
CPT/HCPCS: 74177; J3490